=== PATIENT | male | born 1955 | race Two or more races ===

== ENCOUNTER 2018-07-03 19:20 | Emergency (ER) | payer MEDICAID ==
[~2018-07-03] VITALS: Ht 188 cm; Wt 72.6 kg
[~2018-07-03 19:20] MED LIST: ECO81 PO; SEROQUEL50 M1 PO
[2018-07-03 19:29] VITALS: Ht 188 cm; Wt 72.6 kg
[2018-07-03 20:56] VITALS: BP 155/89
== END 2018-07-03 20:57 | disposition home or self-care (01) ==
LOC: ED 19:20
DX: R09.89 Other specified symptoms and signs involving the circulatory and respiratory systems (principal); I10 Essential (primary) hypertension; F31.9 Bipolar disorder, unspecified; F17.210 Nicotine dependence, cigarettes, uncomplicated
CPT/HCPCS: 99406; Q0092

== ENCOUNTER 2018-07-26 15:10 | Emergency (ER) | payer MEDICAID ==
[~2018-07-26] VITALS: Ht 188 cm; Wt 72.6 kg
[2018-07-26 15:31] VITALS: Ht 188 cm; Wt 72.6 kg
--- NOTE | 2018-07-26 15:45 | NUR ---
PT BIBA FOR ETOH, WAS FOUND OUTSIDE HIS HOUSE AND WAS WITNESSED BY [employer]. PER MEDIC, PATIENT DENIES THAT HE WAS INTOXICATED. UPON ASSESSING PATIENT, PATIENT STS HE HAD ONE BEER. [facility] 15 AAOX4, PATIENT IS ABLE TO ANSWER ALL QUESTIONS WITH CLARITY. AWAITING MSE
[2018-07-26 16:44] LABS: BASOPHIL % 0.8 % (0-2); RED CELL DISTRIBUTION WIDTH 13.7 % (11.5-14.5)
[2018-07-26 16:55] LABS: CALCIUM 8.4 mg/dL (8.5-10.1); CARBON DIOXIDE 24.7 mmol/L (21-32); CHLORIDE SERUM 103 mmol/L (98-107); CREATININE SERUM 0.6 mg/dL (0.7-1.3); GFR1 > 60 mL/min; GLUCOSE SERUM 80 mg/dL (74-106); POTASSIUM SERUM 3.9 mmol/L (3.5-5.1); SODIUM SERUM 143 mmol/L (136-145)
[2018-07-26 16:58] LABS: PLATELET COUNT 93 x10^3mcL (130-400)
[2018-07-26 17:04] LABS: ALBUMIN 3.7 g/dL (3.4-5.0); ALKALINE PHOSPHATASE 137 U/L (46-116); ALT/SGPT 77 U/L (16-63); AST/SGOT 148 U/L (15-37); BILIRUBIN TOTAL 0.31 mg/dL (0.20-1.00); LIPASE 765 IU/L (73-393); TOTAL PROTEIN, SERUM 7.2 g/dL (6.4-8.2); TRIGLYCERIDES 80 mg/dL (<150)
[2018-07-26 17:06] LABS: CHOLESTEROL 225 mg/dL (<200); CHOLESTEROL/HDL RATIO 2.8; HDL CHOLESTEROL 80 mg/dL (40-60)
[2018-07-26 17:13] LABS: T3 TOTAL 0.74 ng/mL
--- NOTE | 2018-07-26 17:35 | NUR ---
PATIENT RESTING AT BEDSIDE IN NAD. REQUESTED FOR WATER. APPROVED BY
[2018-07-26 17:49] LABS: FREE T4 0.87 ng/dL (0.76-1.46); FREE THYROXINE INDEX 1.8 ug/dL (1.4-4.5); T4(THYROXINE) 4.8 ug/dL (4.7-13.3)
[2018-07-26 17:57] LABS: AMPHETAMINE QUAL UR NONE DETECTED (See below)
--- NOTE | 2018-07-26 19:11 | NUR ---
REPORT OFF TO KELLEN JOHNSON
--- NOTE | 2018-07-26 19:13 | NUR ---
REPORT RECEIVED FROM BLAIR FOREMAN
--- NOTE | 2018-07-26 19:13 | NUR ---
PT REQUESTING FOOD. MD SERRANO STATES PT IS NPO RIGHT NOW FOR PANCREATITIS PT INFORMED AND VERBALIZED UNDERSTANDING THAT HE IS NOT ALLOWED TO EAT RIGHT NOW
[2018-07-26 19:59] LABS: UA SPECIFIC GRAVITY <=1.005 (1.005-1.035); microscopic required? YES; urine erythrocyte TRACE (NEGATIVE)
--- NOTE | 2018-07-26 20:15 | NUR ---
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
[2018-07-26 20:32] LABS: PHOSPHOROUS 2.7 mg/dL (2.5-4.9)
--- NOTE | 2018-07-26 20:33 | NUR ---
CALLED MG TO LET HER KMOW PT IS GOING TO SIGN OUT AMA
[2018-07-26 20:38] VITALS: BP 140/87
--- NOTE | 2018-07-27 06:06 | NUR ---
DISCHARGE BY KELLEN SUAZO, MISTAKENLY CHARTED UNDER JACQUELIN IRVIN RN.
--- NOTE | 2018-07-27 06:08 | NUR ---
DISCHARGE ACCIDENTLY DONE UNDER JACQUELIN RN SIGN IN. DISCHARGE AND DISCHARGE NOTE DONE BY ALEX FOREMAN
== END 2018-07-26 20:38 | disposition left against medical advice (07) ==
LOC: ED 15:10 → DU 19:28
PROVIDERS: Internal Medicine; Specialist
DX: K85.90 Acute pancreatitis without necrosis or infection, unspecified (principal); F10.129 Alcohol abuse with intoxication, unspecified; F31.9 Bipolar disorder, unspecified; I10 Essential (primary) hypertension
CPT/HCPCS: 36415; 83880; 84439; G0480; J7030